=== PATIENT | female | born 1965 | race Caucasian/White ===

== ENCOUNTER → 2023-10-03 09:58 | Outpatient (REF) | payer OTHER, SELFPAY | LOC: RAD 09:58 | PROVIDERS: ATTENDING PHYSICIAN Family Medicine | DX: L90.5 Scar conditions and fibrosis of skin (principal) | CPT/HCPCS: 73610 ==

== ENCOUNTER → 2023-10-17 14:31 | Outpatient (REF) | payer OTHER, SELFPAY | LOC: RAD 14:31 | PROVIDERS: ATTENDING PHYSICIAN Family Medicine | DX: M54.2 Cervicalgia (principal); M25.519 Pain in unspecified shoulder | CPT/HCPCS: 72050 ==

== ENCOUNTER 2024-03-08 22:56 | Emergency (ER) | payer OTHER, SELFPAY ==
[2024-03-08 22:56] VITALS: BP 164/82
[2024-03-09] VITALS (7 sets, daily range): BP systolic 113–144; BP diastolic 53–79; BMI 25.4
[2024-03-09 01:28] LABS: % Basophils 0.5 % (0-2); % Eosinophils 0.5 % (0-6); % Immature Granulocytes 0.2 % (0-0.5); % Lymphocytes 13.6 % (20.5-51.1); % Monocytes 6.6 % (1.7-9.3); % Neutrophils 78.6 % (42.2-75.2); Absolute Lymphocytes 0.9 10^3/uL (1.2-3.4); Absolute Monocytes 0.4 10^3/uL (0.1-0.6); Absolute Neutrophils 4.9 10^3/uL (1.4-6.5); Hematocrit 38.2 % (37.0-47.0); Mean Corp Hgb Conc. 36.6 g/dL (33.0-37.0); Mean Corpuscular Hgb 29.4 pg (27.0-31.0); Mean Corpuscular Volume 80.3 fL (81.0-99.0); Mean Platelet Volume 9.9 fL (7.4-10.4); Nucleated Red Blood Cells % 0 %; Platelet Count 201 10^3/uL (130-400); Red Blood Cell Count 4.76 10^6/uL (4.20-5.40); Red Cell Dist. Width 12.5 % (11.5-14.5); White Blood Cell Count 6.2 10^3/uL (4.8-10.8)
[2024-03-09 01:41] LABS: ALT (SGPT) 35 U/L (0-35); AST (SGOT) 33 U/L (14-36); Albumin 4.5 g/dl (3.5-5.0); Alkaline Phosphatase 95 U/L (38-126); Blood Urea Nitrogen 11 mg/dl (7-17); Calcium 9.5 mg/dl (8.4-10.2); Carbon Dioxide 24 mmol/L (22-30); Chloride 99 mmol/L (98-107); Estimated Creatinine Clearance 82 ml/min; Glucose 109 mg/dl (70-99); Lipase 114 U/L (23-300); Potassium 3.4 mmol/L (3.5-5.1); Sodium 131 mmol/L (135-145); Total Bilirubin 0.6 mg/dl (0.2-1.3); eGFR > 60.00
[2024-03-09 01:41] LABS: Lactic Acid 0.8 mmol/L (0.7-2.0)
--- NOTE | 2024-03-09 02:03 | ED.GENMED ---
Addendum entered and electronically signed by Shanae Saez PA-C 03/12/24 16:04:
Two unsuccessful attempts made via phone to notify patient of positive Campylobacter testing.
Original Note:
History of Present Illness
General
Chief Complaint: Abdominal Symptoms
Source: patient
Exam Limitations: none
Time Seen by Provider: 03/09/24 01:49
Nursing documentation reviewed up to this point in time: agreed with
History of Present Illness
History of Present Illness:
58-year-old female presents with 3 days of lower abdominal pain and diarrhea. She reports that she came in tonight because the diarrhea was slightly bloody. She thinks she ate some bad salmon 3 days ago. No one in the family ate the salmon. She
denied fevers before tonight but tonight she had 101.5 fever. States that her pain is crampy. The diarrhea initially started off as yellow and now is green.
Past History
Past History
ED Past Medical History: None
ED Past Surgical History: Gynecological
Social History
Tobacco: Non-smoker
Alcohol: Occasional
Drug: None
Personal:
Living: with family
Review of Systems
Review of Systems
Allergies reviewed?: Yes
All Other Systems: ROS reviewed and negative except as documented in HPI and ROS
Constitutional: Reports no symptoms
EENT: Reports no symptoms
Respiratory: Reports no symptoms
Cardiac: Reports no symptoms
ABD/GI: Reports abdominal pain, nausea, diarrhea and bloody stools (x1); Denies vomiting
: Reports no symptoms
Musculoskeletal: Reports no symptoms
Skin: Reports no symptoms
Neurological: Reports no symptoms
Endocrine: Reports no symptoms
Hematologic/Lymphatic: Reports no symptoms
Psychiatric: Reports no symptoms
Phy Exam
General Physical Exam
General Presentation: well appearing and no apparent distress
General Skin: warm and dry
General Habitus: normal
General Mental: alert
General Hydration: appears well hydrated
ENT Exam
ENT Exam: EOMI, pharynx normal, neck supple and normocephalic
Eye Exam
Eye Exam: PERRL, cornea clear and conjunctiva normal
Cardiovascular Exam
Cardiovascular Exam: regular rate/rhythm, no edema, no murmur and normal peripheral pulses
Pulmonary Exam
Pulmonary Exam: lungs clear, no respiratory distress, no rales, no crackles, no rhonchi, no stridor, no wheezing and no cough
Gastrointestinal Exam
Gastrointestinal Exam: normal bowel sounds, soft, no pulsatile mass and non distended
Palpation: left lower quadrant: Mild tenderness, right lower quadrant: Mild tenderness and generalized: Mild tenderness
Neurological Exam
Neurological Exam: alert, oriented x3, no motor deficits and speech normal
Musculoskeletal Exam
Musculoskeletal Exam: full ROM and no edema
Skin Exam
Skin Exam: normal color, warm/dry, no rash and no petechia
Psychiatric Exam
Psychiatric Exam: normal mood/affect
Course
Orders/Labs/Results
Orders:
Orders
03/09/24 01:11
CMP [Comprehensive Metabolic Panel] Urgent
Complete Blood Count/With Diff Urgent
Lipase Urgent
03/09/24 01:17
Lactate Level [Lactic Acid] Urgent
03/09/24 02:02
CT Abd/pelvis W Iv Cont Urgent
Comment:
Reason For Exam: bloody diarrhea
0.9% Sodium Chloride 1000 ml [Nss] 1,000 ml IV BOLUS
Stool for Occult Blood Routine
03/09/24 02:50
STOOL [C difficile Antigen & Toxins] Urgent
FELIX Source: Feces/Stool
Specimen Description:
Date Specimen was Collected: 03/09/24
Time Specimen was Collected: 02:41
Stool Culture Urgent
FELIX Source: Feces/Stool
Specimen Description:
Date Specimen was Collected: 03/09/24
Time Specimen was Collected: 02:41
Stool For WBC Urgent
FELIX Source: Feces/Stool
Specimen Description:
Date Specimen was Collected: 03/09/24
Time Specimen was Collected: 02:41
03/09/24 05:00
LevoFLOXacin [Levaquin] 750 mg PO NOW STA
MetroNIDAZOLE [Flagyl] 500 mg PO NOW STA
Abnormal Lab Results
03/09/24
01:11
MCV 80.3 L fL
(81.0-99.0)
Absolute Lymphs (auto) 0.9 L 10^3/uL
(1.2-3.4)
Neutrophils % 78.6 H %
(42.2-75.2)
Lymphocytes % 13.6 L %
(20.5-51.1)
Sodium 131 L mmol/L
(135-145)
Potassium 3.4 L mmol/L
(3.5-5.1)
Glucose 109 H mg/dl
(70-99)
03/09/24 01:11
03/09/24 01:11
Vital Signs
Initial and Last Documented VS:
Initial Vital Signs
Temp Pulse Resp BP Pulse Ox
98.9 F 76 24 164/82 96
03/08/24 22:56 03/08/24 22:56 03/08/24 22:56 03/08/24 22:56 03/08/24 22:56
Last Documented Vital Signs
Temp Pulse Resp BP Pulse Ox
101.5 F H 74 15 117/60 98
03/09/24 01:00 03/09/24 03:00 03/09/24 03:00 03/09/24 03:00 03/09/24 03:00
*Radiology
Radiology exam reviewed: radiology read reviewed
*Pulse Oximetry
Patient hypoxic: no
*Critical Care Note
Total Time (30-74mins, 75-104mins- exclusive of procedures): Not Applicable
Update Note
Update Note:
CT abdomen and pelvis with IV contrast
IMPRESSION:
Acute pancolitis and proctitis without obstruction or perforation. The appendix is normal.
Status post cholecystectomy. No pancreatitis. No obstructing renal stone. Lung bases are clear. Abdominal aorta is of normal caliber.
ED Attending Note
-
Portions of this chart may have been created with voice recognition software.� Occasional wrong word or��sound alike� substitutions may have occurred due to the inherent limitations of voice recognition software.
Discharge Plan
Departure
Patient Disposition: Home (Routine Discharge)
Date of Disposition: 03/09/24
Time of Disposition: 05:02
Patient with high blood pressure during this ER visit?: No
Condition: Good
Discharge Problem:
Pancolitis
Instructions: Diarrhea in teens and adults, [place] Diet, Colitis (DC), Abdominal Pain
Prescriptions:
New
levofloxacin 750 mg tablet
750 mg PO DAILY 10 Days Qty: 10 0RF
metronidazole 500 mg tablet
500 mg PO TID Qty: 30 0RF
dicyclomine 20 mg tablet
20 mg PO BID PRN (Reason: abdominal spasm) Qty: 7 0RF
No Action
simethicone [Gas-X Extra Strength] 125 MG tablet,chewable
2 mg PO PRN PRN (Reason: abd pain)
Biosil
2 tab PO TUFR
Patient Comments:
silicon 5mg and choline 100mg
acetaminophen-codeine 1 TABLET tablet
1 - 2 tab PO Q6HPRN PRN (Reason: moderate to severe pain) Qty: 15 0RF
acetaminophen 325 MG tablet
650 mg PO Q4HPRN PRN (Reason: mild pain) Qty: 0 0RF
ibuprofen 200 MG tablet
400 - 600 mg PO Q6HPRN PRN (Reason: pain) Qty: 0 0RF
Referrals:
Mauri Nicole MD [Family Provider] -
Viviane Tan, DO [Active] -
Activity Restrictions/Additional Instructions:
Your prescriptions were sent electronically to the pharmacy that you specified.
It was a pleasure meeting you and taking part in your care. We hope for your continued healing and wellness.
Please read discharge instructions in their entirety. However, they are for general education and may not describe your exact diagnosis at discharge. Information on your ER visit and medical conditions were discussed with you along with appropriate
follow up information...
If indicated, please take your medications as instructed and indicated on discharge paperwork.
Please schedule a follow up appointment as directed. Call to schedule an appointment
Please return to the emergency department with ANY change in, persisting, or worsening of symptoms. If any of your symptoms do not improve, or persist, or become more severe within 6-12 hours, please return to the emergency department for further
care.
Please return to the emergency department if you develop a headache, neck pain/stiffness, fever greater than 100.4F, chest pain, shortness of breath, persistent nausea, vomiting, slurred speech, difficulty walking, numbness/tingling, weakness, signs
of infection or any other symptoms that are worrisome to you.
If you have any questions or concerns please do not hesitate to call the Hospital at or E-mail me directly at [email or web address]
Interventions
Interventions:
*Risk Screen - Suicide Last Done: 03/08/24 22:56
*General Assessment Last Done: 03/09/24 01:13
*Neglect/Abuse Screening Last Done: 03/08/24 22:56
ED- Fall Risk Assessment Last Done: 03/09/24 01:13
*ED COVID-19 Vaccine History Last Done: 03/09/24 01:13
AW-Kllhst-Ivgcdcplgk Assessment Last Done: 03/09/24 01:10
Discharge Date and Time
Print Language: ISRAELI
[2024-03-09] MEDS: NSS 1000 IV ×2 (02:48→05:56)
[2024-03-09] MEDS: FLAGYL 500 MG PO (05:57)
[2024-03-09] MEDS: LEVAQUIN 750 MG PO (05:57)
[2024-03-09] MEDS: BENTYL 20 MG IM (06:00)
[2024-03-09] MEDS: TYLENOL 650 MG PO (06:44)
== END 2024-03-09 07:40 | disposition home or self-care (01) ==
LOC: EMR 22:56
PROVIDERS: EMERGENCY PHYSICIAN Student in an Organized Health Care Education/Training Program; FAMILY PHYSICIAN Family Medicine
DX: K52.9 Noninfective gastroenteritis and colitis, unspecified (principal); K62.89 Other specified diseases of anus and rectum; R50.9 Fever, unspecified; Z90.49 Acquired absence of other specified parts of digestive tract; Z90.710 Acquired absence of both cervix and uterus
CPT/HCPCS: 99284; 96360; 96361; 96372; 74177; 80053; 83605; 83690; 85025; 87045; 87046; 87324; 87427; 87449; 89055; Q9967

== ENCOUNTER → 2024-07-08 06:26 | Day surgery (SDC) | payer BC, SELFPAY | LOC: GI 06:26 | PROVIDERS: ATTENDING PHYSICIAN Internal Medicine Gastroenterology | DX: Z12.11 Encounter for screening for malignant neoplasm of colon (principal); K64.8 Other hemorrhoids; K57.30 Diverticulosis of large intestine without perforation or abscess without bleeding; D12.2 Benign neoplasm of ascending colon; D12.4 Benign neoplasm of descending colon; Z86.0100 Personal history of colon polyps, unspecified | CPT/HCPCS: 45385; 45380; 88305 ==

== ENCOUNTER → 2024-10-22 07:44 | Outpatient (REF) | payer BC, SELFPAY | LOC: RAD 07:44 | PROVIDERS: ATTENDING PHYSICIAN Registered Nurse; OTHER PHYSICIAN Podiatrist | DX: I80.9 Phlebitis and thrombophlebitis of unspecified site (principal); I87.2 Venous insufficiency (chronic) (peripheral) | CPT/HCPCS: 93970 ==